=== PATIENT | female | born 1990 | race Caucasian/White ===

== ENCOUNTER → 2022-04-23 | Outpatient (CLI) | payer BC, SELFPAY ==
[2022-04-23 17:18] LABS: Absolute Lymphocyte Count 1.69 X10^3/uL (0.83-4.51); Absolute Neutrophil Count 4.7 X10^3/uL (2.0-7.7); Basophil# 0.03 X10^3/uL; Basophil% 0.4 % (0-1); Eosinophil# 0.08 X10^3/uL; Eosinophils% 1.2 % (0-5); Hematocrit 31.4 % (37-47); Hemoglobin 10.4 g/dL (12.0-15.0); Lymphocyte # 1.69 X10^3/ul (0.83-4.51); Lymphocyte % 24.6 % (19-41); Mean Corp Hgb Conc 33.1 g/dL (32-36); Mean Corpuscular Hgb 27.7 pg (27.0-32.0); Mean Corpuscular Volume 83.5 fL (81-99); Monocyte# 0.41 X10^3/uL; NRBC Flagged by Analyzer 0 % (0-5); Neutrophil # 4.65 X10^3/uL (2.7-7.7); Neutrophil % 67.5 % (47-70); Platelet Count 235 K/mm3 (150-450); RBC Distribution Width CV 15.1 % (11.6-14.6); Red Blood Count 3.76 M/mm3 (4.2-5.4); White Blood Count 6.9 K/mm3 (4.4-11.0)
[2022-04-23 18:35] LABS: HIV - WCH Non-Reactive (Nonreactive); Hepatitis B Surface Antigen Non-Reactive (Nonreactive); Hepatitis C Antibody Non-Reactive (Nonreactive); Rubella IgG Reactive (Nonreactive); Syphilis Antibodies Non-reactive
[2022-04-27 05:06] LABS: Chlamydia By Nucleic Acid AMP Negative (Negative); Gonococcus By Nucleic Acid AMP Negative (Negative)
[2022-04-28 11:21] LABS: V-Zoster IgG (Immunity) 1094 index (Immune >165)
[2022-05-02 21:00] LABS: HPV APTIMA, High Risk Negative (Negative)
== END | disposition home or self-care (01) ==
LOC: WOBLAB 15:15
PROVIDERS: Visit Provider Obstetrics & Gynecology
DX: Z34.81 Encounter for supervision of other normal pregnancy, first trimester (principal)
CPT/HCPCS: 36415; 85025; 86703; 86762; 86780; 86787; 86803; 87086; 87088; 87340; 87491; 87591; 87624; 88175; G0145

== ENCOUNTER → 2022-06-24 | Outpatient (CLI) | payer BC, SELFPAY ==
--- NOTE | 2022-06-24 14:13 | US_ITS ---
EXAM: US SECOND OR THIRD TRIMESTER , TRANSABDOMINAL CLINICAL INDICATION: WELLBEING- anatomy TECHNIQUE: Transabdominal obstetrical ultrasound of the maternal pelvis and a second or third trimester with image documentation. This report was created using [employer] report generation technology. COMPARISON: None. FINDINGS: FETUS: Single live intrauterine . HEART RATE: heart rate: 145 bpm. PRESENTATION: Breech position. PLACENTA: The placenta is posterior with no previa or other abnormality. AMNIOTIC FLUID: The amount of amniotic fluid is within normal limits for the gestational age. ANATOMY: Unremarkable appearance of the intracranial structures, four-chamber heart, diaphragm, stomach, abdominal wall, cord insertion, three-vessel cord, kidneys, bladder, spine, and extremities.. BIOMETRICS GESTATIONAL AGE: Gestational age by ultrasound: 20 weeks 4 days, NEVIN 11/07/2022. Gestational age by LMP: 20 weeks 6 days, NEVIN 11/05/2022. EFW: Estimated weight: 384 g, 45th percentile. BPD: 4.8 cm, 20 weeks 4 days. HC: 18.0 cm, 20 weeks 3 days. AC: 16.3 cm, 21 weeks 3 days. FL: 3.3 cm, 20 weeks 2 days. MATERNAL: CERVIX: The cervix measures 4.3 cm in length. ADNEXA: The ovaries were not visualized due to gravid uterus and bowel gas. FREE FLUID: None. US/OB Anatomy Scan IMPRESSION: 1. Single live intrauterine measuring 20 weeks 4 days, with no acute abnormality identified. 2. Unremarkable anatomic survey. Electronically Signed: Henrique Rodrigez MD at 1:47 EST ,
== END | disposition home or self-care (01) ==
LOC: US 14:10
PROVIDERS: PCP Family Medicine; Referring Provider Obstetrics & Gynecology; Visit Provider Obstetrics & Gynecology
DX: Z34.82 Encounter for supervision of other normal pregnancy, second trimester (principal)
CPT/HCPCS: 76805

== ENCOUNTER 2022-07-07 03:10 | Outpatient (CLI) | payer BC, SELFPAY ==
[2022-07-07 03:29] VITALS: BP 107/57; PULSE 92; TEMP 37.6; O2SAT 98
[2022-07-07 03:32] VITALS: BMI 21.9
[2022-07-07] MEDS: Lactated Ringers 1,000 ML 999 ML IV (04:02)
[2022-07-07] MEDS: Ondansetron 4 MG/2 ML Vial IV (04:05)
--- NOTE | 2022-07-16 07:09 | PCM.PN.BLA ---
Progress Note Patient presented for nausea and vomiting. Gastrointestinal virus. Received IV fluid and Zofran. Patient tolerating p.o. status reassuring, discharged home.
== END 2022-07-07 05:16 | disposition home or self-care (01) ==
LOC: WPOUT 03:14 → WP 03:15
PROVIDERS: PCP Family Medicine; Visit Provider Student in an Organized Health Care Education/Training Program
DX: O98.519 Other viral diseases complicating pregnancy, unspecified trimester (principal); A08.4 Viral intestinal infection, unspecified; Z3A.00 Weeks of gestation of pregnancy not specified
CPT/HCPCS: 96372; 59025; 59050; 99221; J7120; G0378; J2405

== ENCOUNTER 2022-08-04 21:10 | Outpatient (CLI) | payer BC, SELFPAY ==
[2022-08-04 21:23] VITALS: BP 112/68; PULSE 72; TEMP 36.7
[2022-08-04 21:46] LABS: Color, Urine Yellow (Yellow); Glucose, Dipstick Normal (Normal); Ketone-Dipstick Negative (Negative); Leukocyte Esterase-Dipstick 25 /ul (Negative); Nitrite-Dipstick Negative (Negative); Occult Blood-Urine Negative /ul (Negative); Protein-Dipstick Negative (Negative); Urine Bilirubin Dipstick Negative (Negative); Urine Clarity Clear (Clear); Urine Urobilinogen Normal (Normal); Urine pH 6.5 (5.0 - 8.0)
[2022-08-04] MEDS: Lactated Ringers 1,000 ML 999 ML IV (22:15)
--- NOTE | 2022-08-04 22:26 | HP.PCM.OB_ITS ---
History and Physical Date of Admission: 08/04/22 HPI: 32-year-old G2, P1 at 26/5 weeks, NEVIN 11/05/2022 by first trimester ultrasound, presenting with abdominal pain. Patient reports that she was making dinner this evening and then had some pain in her abdomen, she had emesis x1. Patient reports the pain is in her upper abdomen. Denies fevers at home. Denies sick contacts. Reports that she has not had a full bowel movement in 3 weeks, about 2 days ago she had small pellet like stool. Denies abdominal trauma. Denies abuse. Denies headache or vision changes, chest pain or shortness of breath, diarrhea, fevers or chills. No history of nephrolithiasis or gallstones. 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 Poor dentition Surgical history: 1. Oral surgery Medications: 1. Docusate 2. vitamin Social history: Reports tobacco use vaping, denies alcohol or drug use Family history: Denies Allergies: No known drug allergies Review of system: Negative otherwise stated above Physical exam: Blood pressure 112/60, heart rate 72, temp 98.0 ?F General: Patient comfortable in bed, in no acute distress HEENT: Normal cephalic/atraumatic, PERRLA Cardiorespiratory: No increased effort Abdomen: Soft, no rebound or guarding, minimal tenderness epigastric region. No CVA tenderness. Cervical exam: Cervix closed thick and high Extremities:'s no edema Neurologic: Cranial nerves II through XII grossly intact, no focal deficits heart rate: 130/mod cindy/+accel/no decel Villarreal: quiet Assessment/plan: 32-year-old G2, P1 at 26/5 weeks, NEVIN 11/05/2022 by first trimester ultrasound, presenting with abdominal pain. ?Abdomen soft without rebound or guarding. No fundal tenderness. Mild tend erness epigastric region, above level of the fundus. No stool palpated in the rectum on cervical exam. Cervix closed, no evidence of labor at this time. No evidence of abruption. No CVA tenderness on exam, no signs of pyelonephritis. ?We will plan to IV fluid hydrate. ?Patient with severe constipation, no bowel movement in about 3 weeks aside from small constipated stools. Will give MiraLAX and milk of magnesia. We will have patient continue MiraLAX daily on discharge. ? Urinalysis pending. CBC, CMP, lipase pending. ?Tylenol for discomfort, Zofran as needed for nausea or vomiting. Pepcid to be given. ?Current working diagnosis is constipation. All questions answered. Reviewed plan of care with patient and bedside RN.
[2022-08-04 22:28] LABS: Absolute Lymphocyte Count 1.87 X10^3/uL (0.83-4.51); Absolute Neutrophil Count 8.2 X10^3/uL (2.0-7.7); Basophil# 0.04 X10^3/uL; Basophil% 0.4 % (0-1); Eosinophil# 0.04 X10^3/uL; Eosinophils% 0.4 % (0-5); Hematocrit 31.4 % (37-47); Lymphocyte # 1.87 X10^3/ul (0.83-4.51); Lymphocyte % 17.2 % (19-41); Mean Corp Hgb Conc 31.8 g/dL (32-36); Mean Corpuscular Hgb 29.7 pg (27.0-32.0); Mean Corpuscular Volume 93.2 fL (81-99); Mean Platelet Vol. 10.1 fl (6.2-12.0); Monocyte# 0.65 X10^3/uL; NRBC Flagged by Analyzer 0 % (0-5); Neutrophil # 8.23 X10^3/uL (2.7-7.7); Neutrophil % 75.4 % (47-70); Platelet Count 172 K/mm3 (150-450); RBC Distribution Width CV 13.3 % (11.6-14.6); RBC Distribution Width SD 45.2 fl (35.1-43.9); Red Blood Count 3.37 M/mm3 (4.2-5.4); White Blood Count 10.9 K/mm3 (4.4-11.0)
[2022-08-04] MEDS: Polyethylene Glycol 3350 17 GM PACKET PO (22:32)
[2022-08-04] MEDS: Acetaminophen 500 MG Tablet 1000 MG PO (22:32)
[2022-08-04] MEDS: Famotidine 20 MG Tablet 40 MG PO (22:38)
[2022-08-04] MEDS: Magnesium Hydroxide 30 ML UDC 15 ML PO (22:39)
[2022-08-04 22:46] LABS: ALB/GLOB Ratio 0.9 RATIO (0.9-2.4); AST(SGOT) 13 U/L (15-37); Alanine Aminotransfer ALT/SGPT 13 U/L (13-56); Albumin, Serum 2.9 g/dL (3.2-5.0); Alkaline Phosphatase 71 U/L (45-117); Anion Gap 8 (5-15); BUN 6 mg/dL (7-18); BUN/Creat Ratio 13.2 RATIO (10-20); Calcium,Total 8.6 mg/dL (8.5-10.1); Chloride 107 mmol/L (98-107); Creatinine, Serum 0.46 mg/dL (0.55-1.02); EST Glomerular Filtration Rate 168 mL/min (>60); Est Glom Filt Rate - Afr Amer 203 mL/min (>60); Globulin 3.4 g/dL (2.2-4.2); Glucose 81 mg/dL (74-106); Lipase 164 U/L (73-393); Potassium 3.5 mmol/L (3.5-5.1); Protein, Total 6.3 g/dL (6.4-8.2); Sodium Level 139 mmol/L (136-145)
== END 2022-08-04 23:30 | disposition home or self-care (01) ==
LOC: WPOUT 21:19 → WP 21:20
PROVIDERS: PCP Family Medicine; Referring Provider Student in an Organized Health Care Education/Training Program; Visit Provider Student in an Organized Health Care Education/Training Program
DX: O99.612 Diseases of the digestive system complicating pregnancy, second trimester (principal); K59.00 Constipation, unspecified; Z3A.26 26 weeks gestation of pregnancy; O99.332 Smoking (tobacco) complicating pregnancy, second trimester; F17.290 Nicotine dependence, other tobacco product, uncomplicated; O99.012 Anemia complicating pregnancy, second trimester
CPT/HCPCS: 96372; 96360; 36415; 59050; 80053; 81001; 81002; 83690; 85025; 99221; J7120; G0378

== ENCOUNTER → 2022-08-12 | Outpatient (CLI) | payer BC, SELFPAY ==
[2022-08-12 15:08] LABS: Glucose Challenge Gest 1H 50g 92 mg/dL (70-140)
[2022-08-12 15:34] LABS: Syphilis Antibodies Non-reactive
== END | disposition home or self-care (01) ==
LOC: WOBLAB 13:10
PROVIDERS: PCP Family Medicine; Visit Provider Obstetrics & Gynecology
DX: Z34.82 Encounter for supervision of other normal pregnancy, second trimester (principal)
CPT/HCPCS: 36415; 82950; 86780

== ENCOUNTER → 2022-10-06 | Outpatient (CLI) | payer BC, SELFPAY | END | disposition home or self-care (01) | LOC: LABSPEC 14:44 | PROVIDERS: PCP Family Medicine; Visit Provider Student in an Organized Health Care Education/Training Program | DX: Z36.85 Encounter for antenatal screening for Streptococcus B (principal) | CPT/HCPCS: 87077; 87081; 87186 ==

== ENCOUNTER → 2022-10-08 | Outpatient (CLI) | payer BC, SELFPAY | END | disposition home or self-care (01) | LOC: WOBLAB 14:31 | PROVIDERS: PCP Family Medicine; Visit Provider Nurse Practitioner Women's Health | DX: Z34.83 Encounter for supervision of other normal pregnancy, third trimester (principal) | CPT/HCPCS: 87086 ==

== ENCOUNTER → 2022-10-13 | Outpatient (CLI) | payer BC, SELFPAY | END | disposition home or self-care (01) | LOC: WOBLAB 13:46 | PROVIDERS: PCP Family Medicine; Visit Provider Student in an Organized Health Care Education/Training Program | DX: O23.40 Unspecified infection of urinary tract in pregnancy, unspecified trimester (principal) | CPT/HCPCS: 87086; 87088 ==

== ENCOUNTER 2022-10-29 14:45 | Inpatient (IN) | payer BC, SELFPAY ==
[2022-10-29] VITALS (46 sets, daily range): BP systolic 98–143; BP diastolic 47–90; PULSE 59–149; TEMP 36–36.3; O2SAT 83–100; BMI 24.5
[2022-10-29] MEDS: Lactated Ringers 1,000 ML 50 ML IV (15:25)
[2022-10-29 15:57] LABS: Absolute Lymphocyte Count 2.02 X10^3/uL (0.83-4.51); Absolute Neutrophil Count 6.3 X10^3/uL (2.0-7.7); Basophil# 0.03 X10^3/uL; Basophil% 0.3 % (0-1); Eosinophil# 0.04 X10^3/uL; Eosinophils% 0.4 % (0-5); Hematocrit 33.6 % (37-47); Hemoglobin 10.6 g/dL (12.0-15.0); Lymphocyte # 2.02 X10^3/ul (0.83-4.51); Lymphocyte % 22.6 % (19-41); Mean Corp Hgb Conc 31.5 g/dL (32-36); Mean Corpuscular Hgb 27.3 pg (27.0-32.0); Mean Corpuscular Volume 86.6 fL (81-99); Mean Platelet Vol. 10.4 fl (6.2-12.0); Monocyte# 0.53 X10^3/uL; Monocyte% 5.9 % (0-10); NRBC Flagged by Analyzer 0 % (0-5); Neutrophil # 6.25 X10^3/uL (2.7-7.7); Neutrophil % 70.1 % (47-70); Platelet Count 216 K/mm3 (150-450); RBC Distribution Width SD 40.6 fl (35.1-43.9); Red Blood Count 3.88 M/mm3 (4.2-5.4); White Blood Count 8.9 K/mm3 (4.4-11.0)
[2022-10-29] MEDS: Oxytocin 15 Units/NS 250ml 15 UNITS/250 ML IV.SOLN 2 UNITS IV (16:11)
[2022-10-29 16:44] LABS: Syphilis Antibodies Non-reactive
--- NOTE | 2022-10-29 17:11 | HP.PCM.OB_ITS ---
History and Physical Date of Admission: 10/29/22 Chief complaint: Induction of labor at term History present illness: 32-year-old at 39 weeks and 0 days with NEVIN 11/05/2022 arrives for induction of labor at term. Denies headache, vision changes, chest pain, shortness of breath, nausea vomit, right upper quadrant pain. Patient states good movement. is complicated by anxiety depression, GBS positive Obstetric history: G1: 36-week male 6 pounds 1 ounce G2: Current Past medical history: Anxiety depression Medications: Zoloft, vitamin Past surgical history: Dental Social history: Vapes, denies alcohol or drug use Family history: Denies history DVT or PE Review of systems: Besides above pertinent positives a full review of systems was performed and found to be negative Physical exam: Vitals: Blood pressure 114/71 pulse 70 General: Normal-appearing no acute distress HEENT: Normocephalic atraumatic no cervical lymphadenopathy Cardiac/respiratory: No use of accessory muscles, nonlabored breathing Abdomen: Soft, nontender, gravid Extremities: No peripheral edema normal peripheral pulses Psych: Normal affect normal demeanor nonpressured speech Labs: White blood cell count 8.9 hemoglobin 10.6 hematocrit 33.6% platelets 216. RPR nonreactive Assessment plan: Called by nursing with induction orders initially Cytotec after cervical exam by nursing 4 cm given orders for Pitocin, also given orders for penicillin for GBS. Notified by nursing that she notes an audible arrhythmia a small percentage of the time in the room cannot pick up worker on the heart tones. Patient seen and examined 32-year-old at 39 weeks and 0 days arrives for induction of labor at term. At my time during evaluation of the patient and discussion no arrhythmia audible, heart tones reassuring, we will continue to monitor. Admit labor and delivery CEFM GBS positive for penicillin Pitocin induction after nursing check with advanced dilation Routine orders
[2022-10-29] MEDS: LACTATED RINGERS 500 ML 999 ML IV (17:37)
[2022-10-29] MEDS: fentaNYL-bupivacaine (epidural) 100 ML BAG EPIDURAL (18:14)
--- NOTE | 2022-10-29 18:42 | NURSING ---
hx of use when younger.
[2022-10-29] MEDS: Penicillin G 3,000,000 Units 50 ML 100 UNITS IV (19:32)
--- NOTE | 2022-10-29 19:38 | PCM.PN.OB ---
Subjective Subjective Patient now comfortable with epidural, no complaint Objective Data Objective Data Vital Signs: Vital Signs Temp Pulse BP Pulse Ox 97.3 F L 65 111/53 L 83 10/29/22 18:35 10/29/22 19:28 10/29/22 19:28 10/29/22 19:27 Weight: 156 lb 8.451 oz Body Mass Index (BMI) 24.5 Intake & Output: Intake and Output for Last 24 Hours 10/27/22 10/28/22 10/29/22 23:59 23:59 23:59 Intake Total 1929.40 / 1929.40 Output Total 300 / 300 Balance 1629.40 / 1629.40 Lab / Micro Data Result Diagrams: 10/29/22 15:25 Labs: Laboratory Results - last 24 hr 10/29/22 15:25: WBC 8.9, RBC 3.88 L, Hgb 10.6 L, Hct 33.6 L, MCV 86.6, MCH 27.3, MCHC 31.5 L, RDW Std Deviation 40.6, RDW Coeff of Jacey 13.0, Plt Count 216, MPV 10.4, Immature Gran % (Auto) 0.700, Neut % (Auto) 70.1 H, Lymph % (Auto) 22.6, [place] % (Auto) 5.9, Eos % (Auto) 0.4, Baso % (Auto) 0.3, Absolute Neuts (auto) 6.3, Absolute Lymphs (auto) 2.02, Nucleated RBC % 0 10/29/22 15:25: Blood Type A POSITIVE, Antibody Screen NEGATIVE 10/29/22 15:25: Syphilis Total Ab Non-reactive Physical Exam Const alert, oriented x3, no apparent distress, average body habitus, healthy appearing and well nourished HEENT normocephalic and moist oral mucous membranes Eyes PERRL Neck full ROM Resp normal respiratory effort, no retractions and no use of accessory muscles Psych mental status grossly normal, affect normal, speech normal and activity/motor behavior normal Assessment & Plan (1) : PLAN: Arrived to room notified by nursing that patient with SROM now status post epidural. Patient states feeling much more comfortable with epidural. Per nursing cervical exam 5 cm. We will continue to titrate Pitocin
[2022-10-30] VITALS (44 sets, daily range): BP systolic 101–163; BP diastolic 56–79; PULSE 60–87; RESP 14–16; TEMP 36.4–36.6; O2SAT 97–100
[2022-10-30] MEDS: Oxytocin 15 Units/NS 250ml 15 UNITS/250 ML IV.SOLN 83 UNITS IV (00:05)
--- NOTE | 2022-10-30 00:06 | EX.PCM.OBRPT ---
Vaginal Delivery Findings Description of Procedure: Normal spontaneous vaginal delivery of a viable male , vertex RUDDY. Head and shoulders delivered with ease. Cord clamped and cut. Baby handed off to patient. Placenta attempted to be delivered via cord traction and fundal massage, attempted maternal pushing, ultimately required manual extraction of placenta which was delivered intact. IV oxytocin was initiated per protocol. Bedside ultrasound was performed and showed thin endometrial stripe. Bilateral labial and second-degree midline perineal laceration noted and repaired in typical fashion. EBL 250 cc Apgars 9/10
[2022-10-30] MEDS: 0.9% Saline Lock 10 ML Syringe IV (02:55)
--- NOTE | 2022-10-30 08:25 | PN.OBGYN_ITS ---
Subjective Subjective No overnight complaints Objective Data Objective Data Vital Signs: Vital Signs Temp Pulse Resp BP Pulse Ox O2 Del Method 97.8 F 77 16 101/58 L 98 Room Air 10/30/22 04:24 10/30/22 04:24 10/30/22 04:24 10/30/22 04:24 10/30/22 04:24 10/30/22 04:24 Oxygen Delivery Method Room Air Weight: 156 lb 8.451 oz Body Mass Index (BMI) 24.5 Intake & Output: Intake and Output for Last 24 Hours 10/28/22 10/29/22 10/30/22 23:59 23:59 23:59 Intake Total 2650.14 / 2650.14 421.63 / 421.63 Output Total 1050 / 1050 1000 / 1000 Balance 1600.14 / 1600.14 -578.37 / -578.37 Lab / Micro Data Result Diagrams: 10/29/22 15:25 Labs: Laboratory Results - last 24 hr 10/29/22 15:25: WBC 8.9, RBC 3.88 L, Hgb 10.6 L, Hct 33.6 L, MCV 86.6, MCH 27.3, MCHC 31.5 L, RDW Std Deviation 40.6, RDW Coeff of Jacey 13.0, Plt Count 216, MPV 10.4, Immature Gran % (Auto) 0.700, Neut % (Auto) 70.1 H, Lymph % (Auto) 22.6, [place] % (Auto) 5.9, Eos % (Auto) 0.4, Baso % (Auto) 0.3, Absolute Neuts (auto) 6.3, Absolute Lymphs (auto) 2.02, Nucleated RBC % 0 10/29/22 15:25: Blood Type A POSITIVE, Antibody Screen NEGATIVE 10/29/22 15:25: Syphilis Total Ab Non-reactive Physical Exam Const alert, oriented x3, no apparent distress, average body habitus, healthy appearing and well nourished HEENT normocephalic and moist oral mucous membranes Eyes PERRL Resp normal respiratory effort, no retractions and no use of accessory muscles GI GI Narrative: Soft, nontender, uterus firm and below umbilicus Extremity normal to inspection, full ROM and no clubbing, cyanosis or edema Neuro moves all extremities and no focal motor deficits Psych mental status grossly normal, affect normal, speech normal and activity/motor behavior normal Assessment & Plan (1) Vaginal delivery: PLAN: day 1. Formula feeding. Pain well controlled. Likely home tomorrow
[2022-10-30] MEDS: Senna/Docusate Sodium 1 Tablet PO (08:38)
[2022-10-30] MEDS: Ibuprofen 600 MG Tablet PO ×2 (08:38→16:48)
[2022-10-30] MEDS: Acetaminophen 500 MG Tablet 1000 MG PO (21:38)
[2022-10-30] MEDS: Sertraline 50 MG Tablet PO (21:38)
[2022-10-31] MEDS: Ibuprofen 600 MG Tablet PO (03:25)
[2022-10-31 03:26] VITALS: BP 116/75; PULSE 65; RESP 16; TEMP 36.4; O2SAT 100
[2022-10-31 03:27] VITALS: BP 116/75; PULSE 61
--- NOTE | 2022-10-31 06:59 | NURSING ---
FOB came to nurse's station requesting pt's RN to come to room. Pt's assigned RN busy, so this RN went to room. Pt was in bed and fussy in crib at bedside with blanket loosely swaddled around infant. Pt reported that she ''either needs to go home or get some help''. RN inquired what pt needed and pt reported that she was feeling nauseas from not sleeping all night and she needed to get some rest or go home so that the infant's grandma's could care for him for a while. RN offered Zofran, but pt declined. RN offered to reswaddle infant. Pt fell asleep while RN was swaddling . RN inquired when infant's last feed was and FOB reported that infant last ate 2 cc's at 0530. very fussy and showing feeding cues, so RN offered a bottle and infant ate 22 cc's. RN burped infant, swaddled , and laid infant back in crib. Both FOB and MOB sleeping by the time infant took bottle. When RN left room, pt, FOB and infant all sleeping.
[2022-10-31 08:23] VITALS: BP 123/79; PULSE 77
--- NOTE | 2022-10-31 08:41 | PCM.DC.BLA ---
Discharge Summary Date of Admission: 10/29/22 Date of Discharge: 10/31/22 Summary: Patient arrived on 10/29/2022 for induction of labor at term. Subsequently delivered vaginally on 10/29/2022. Routine recovery. Discharged home on 10/31/2022 Meaningful Use Info Meaningful Use Diagnoses (Choose all that apply): None applicable Discharge Plan Admission Admit Date/Time: 10/29/22 14:45 Primary Reason for Your Visit: Induction of labor Attending Provider: Ugo Mendoza Primary Care Provider: Neal De La Cruz Instructions Additional Instructions / Restrictions: Regular diet. Weightbearing as tolerated. Okay to shower. No intercourse for 4 to 6 weeks. Call if fevers, chills. Follow-up 4 to 6 weeks Discharge Orders/Prescriptions Prescriptions: No Action 1 mg Tablet 1 tab PO DAILY docusate sodium [Doculax] 100 mg Capsule 100 mg PO QODAY sertraline [Zoloft] 50 mg Tablet 50 mg PO QHS Referrals / Follow Up: Neal De La Cruz MD [Primary Care Provider] - Disposition Disposition (needs filled in before D/C Order can be placed): Home, Self Care
--- NOTE | 2022-10-31 08:42 | PCM.PN.OB ---
Subjective Subjective No overnight complaints Objective Data Objective Data Vital Signs: Vital Signs Temp Pulse Resp BP Pulse Ox O2 Del Method 97.5 F L 77 16 123/79 H 100 Room Air 10/31/22 03:26 10/31/22 08:23 10/31/22 03:26 10/31/22 08:23 10/31/22 03:26 10/31/22 03:26 Oxygen Delivery Method Room Air Weight: 156 lb 8.451 oz Body Mass Index (BMI) 24.5 Intake & Output: Intake and Output for Last 24 Hours 10/29/22 10/30/22 10/31/22 23:59 23:59 23:59 Intake Total 2650.14 / 2650.14 421.63 / 421.63 Output Total 1050 / 1050 1700 / 1700 Balance 1600.14 / 1600.14 -1278.37 / -1278.37 Lab / Micro Data Result Diagrams: 10/29/22 15:25 Physical Exam Const alert, oriented x3, no apparent distress, average body habitus, healthy appearing and well nourished HEENT normocephalic and moist oral mucous membranes Eyes PERRL Neck full ROM Resp normal respiratory effort, no retractions and no use of accessory muscles GI GI Narrative: Soft, nontender, uterus firm and below umbilicus Extremity normal to inspection and full ROM Neuro moves all extremities and no focal motor deficits Psych mental status grossly normal, affect normal, speech normal and activity/motor behavior normal Assessment & Plan (1) Vaginal delivery: PLAN: day 2. Formula feeding. Pain well controlled. Okay to discharge home today
--- NOTE | 2022-10-31 09:27 | CASEMGMT ---
Addendum entered by Bre Yanez 10/31/22 10:21: Social Work: MOB did not identify any social stressors(SW left off of original assessment). Also, no tox screen completed on MOB. Baby's tox screen negative, meconium pending. ROBERT Velasquez Original Note: Social Work Labor and Delivery Unit Date/Time of referral: 10/30/22 at 14:22 Referred by: Dr. Ugo Mendoza Date/Time of intervention: 10/31/22 at 8:50am Reason for referral: Hx of anxiety SW spoke RN initially, MOB expressed did not want to see SW. Upon further discussion, MOB relayed to RN she had a bad experience at [facility] with an RN, where she got upset w/RN and then MOB had a visit at home, presumably from Children's Services. SW met w/MOB, asked pt's boyfriend Cristiana and Cristiana's mom to leave the room. SW explained role of SW in the hospital, to make sure MOB has what she needs at discharge for she and the baby. SW attempted to reassure MOB that seeing as SW does not equal a Children's Services Referral. We spoke about what happened at [facility] when her son Ryne was born. MOB explained that she was in a lot of pain, had to have the baby scooped out, felt everything. She states she had an argument with a nurse, during all of this. She states the nurse did not call social insurance administrator in the hospital. She states once she was home had a visit from Children's Services, who saw her once and then closed the case. We spoke about the difficult experience she had at [facility]. She came here due to her experience at [place]. She states spoke w/her boyfriend Cristiana and got recommendations from friends to work with Dr. Mendoza and Dr. Mendoza, and have the baby here. MOB states her experience here has been so much better, that everyone here has been great. She was concerned to see the SW here based on her experience at [place]. MOB states she was having more anxiety and spoke to her doctor about it, who put her back on Zoloft. MOB asked if this is why SW was called and if this was going to be a concern. SW reassured MOB the referral was for anxiety, but her asking for help and being put back on Zoloft is a good thing, showing she recognized what was going on and asked for help. MOB states understanding. We spoke about anxiety, and things snowballing, ways to stay in the present. HARISH states she does not have panic attacks anymore but did identify with the warning signs of increased anxiety. Reassurance given to HARISH. We also spoke about note in chart from this morning when she was having a difficult moment. She states she wasn't feeling well and was concerned about SW having to come see her. At present MOB holding baby and very appropriate. History obtained from: HARISH Household composition: ANIBAL MOREIRA son Ryne(age 3) and now baby [place]. HARIHS and ANIBAL have been together since December. Jackie is involved, is involved w/3 yr old also even though he is not the father. HARISH states Ryne has started calling Jackie Dad. NATASHA Michele not involved has met him 3-4 times total. Medical History: MOB: Anxiety. Baby: Born 10/29/22 at 23:29, 3005 grams. Apgars 9 and 10 at 1 and 5 minutes. Educational History: HARISH--some vocational school. NATASHAeDric--some college Financial Concerns: None. ANIBAL is an [employer] of a company called [employer]. 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 HARISH does plan to return to work, and her parents will care for the children. Infant Supplies: They have all needed supplies including diapers, wipes, car seat, crib, bassinet, clothing, formula, bottles Childcare/Caregivers: HARISH, ANIBAL, HARISH's parents, HARISH's sister Nga. Abdi Michele is with Nga at present. Transportation: They have 3 vehicles. Programs/Agencies Involved: None at present. Children's Services/Legal Issues: Children's Services visited the home one time after Ryne was born, as per MOB the case was closed. Behavioral Health Issues: Substance abuse: HARISH states drank and used marijuana years ago when a teenager, has not used in years. She states no history of subtance abuse for Jackie. No safety concerns as per MOB. Mental Health: MOB: History of anxiety. HARISH has been on Zoloft before, was having anxiety and physician suggested she go back on Zoloft. She states it helps. HARISH has been in counseling in the past and will reach out if she feels the need for counseling again. SW encouraged MOB to reach out to doctor if having more anxiety, and pursue counseling if struggling w/anxiety. SW reminded MOB that asking for help is not a sign of weakness at all, and reassured her again asking for help when anxious was absolutely the right thing to do. FOB: None Family/Social Stressors: None Support Systems: MOB's parents, sister, FOB's parents. FOB's mother is here now. Depression and Anxiety/Shaken Baby/Safe Sleeping/Resources/Help Me Grow: SW asked Jackie and Jackie's' mom to come back in, w/MOB's permission. SW reviewed all resources w/MOB and family, and reviewed in particular the warning signs of PPD and anxiety. Assessment: SW spoke w/MOB at length, once she seemed to better understand SW role, MOB seemed reassured. MOB open w/SW and answered all questions appropriately. MOB holding baby while speaking w/SW and appropriate w/care. Plan: Baby to go home w/FOB and MOB at discharge. No further social service needs anticipated at this time. ROBERT Velasquez
[2022-10-31 10:11] VITALS: BP 123/79; PULSE 77; RESP 16; TEMP 36.8
== END 2022-10-31 13:38 | disposition home or self-care (01) | DRG 807 ==
PROVIDERS: Student in an Organized Health Care Education/Training Program; Admitting Provider Obstetrics & Gynecology; PCP Family Medicine; Referring Provider Obstetrics & Gynecology; Visit Provider Obstetrics & Gynecology
DX: O99.824 Streptococcus B carrier state complicating childbirth (principal); Z37.0 Single live birth; O99.344 Other mental disorders complicating childbirth; B95.1 Streptococcus, group B, as the cause of diseases classified elsewhere; F41.9 Anxiety disorder, unspecified; O70.1 Second degree perineal laceration during delivery; Z3A.39 39 weeks gestation of pregnancy; F32.A Depression, unspecified
CPT/HCPCS: 59025; 59050; 85025; 86780; 86850; 86900; 86901; 99221; J7120; A4216; G0378